=== PATIENT | female | born 1995 | race Caucasian/White ===

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

== ENCOUNTER 2018-07-25 20:21 | Emergency (ER) | payer MEDICAID, OTHER ==
--- NOTE | 2018-07-25 20:58 | EDPHY ---
HPI/HX/ROS/PE/MDM Narrative: CHIEF COMPLAINT: Chest tightness HPI: The patient is a 22 y/o female complaining of chest tightness and shortness of breath. Around 6 days ago, she took medication to induce a miscarriage. Since then she has had steady vaginal bleeding and minor pain with urination. She has also felt more anxious and has had some tingling in her extremities. Today at 11 :00, 10 hours ago, she started to having a tight sensation in her chest associated with feeling like she can't take a full breath. This pain started while doing house work and is aggravated while lying down. Since arriving in the emergency department the pain has started radiating to her back. She denies a history of similar symptoms and this feels different than a prior asthma attack. Denies cardiac or pulmonary disease, familial history of cardiac or pulmonary disease, history of blood clots. No headache, abdominal pain, bowel complaints, paresthesias, fever. REVIEW OF SYSTEMS: Aside from elements discussed in the HPI, a comprehensive 10 system review of systems is otherwise negative. PMH: Elective , exercise induced asthma SOCIAL HISTORY: Mother at bedside, lives in [facility] PHYSICAL EXAM: General: Patient is anxious, alert, in no acute distress. ENT: Eyes are normal to inspection. ENT inspection normal. Neck: Normal inspection. Full range of motion. Respiratory: No respiratory distress. Breath sounds normal bilaterally. Cardiovascular: Regular rate and rhythm. Strong peripheral pulses. Normal cap refill. Abdomen: The abdomen is nontender to palpation. There are no peritoneal signs. There are normal bowel sounds. Back: Normal to inspection. No tenderness to palpation. Skin: Normal color. No rash. Warm and dry. Extremities: Normal appearance. Full range of motion. Neuro: Oriented x3. Normal motor function. Normal sensory function. ED Course: 2110: EKG was ordered and interpreted by myself. Please see [employer] system for official reading. 2149: Patient's labs and chest x-ray are unremarkable. She is feeling better after 0.5 mg IV Ativan. 2228: Reassessed patient and discussed laboratory and imaging studies.I have prescribed her Macrobid for her UTI. Return precautions provided; patient is comfortable with this plan. MDM: This is a young female with atypical chest pain and negative workup. Patient apparently admitted to nurse that she has been using meth. I see no signs of PE , PTx, ACS, TAD or pneumonia. Patient has no minimal urinary symptoms but appears to have a UTI by UA. - Data Points Imaging Results: Imaging Impressions Chest X-Ray 07/25/18 21:02 Impression: No acute cardiopulmonary process. Imaging: I viewed and interpreted images myself Laboratory Results: Laboratory Results 07/25/18 21:00 07/25/18 21:00 07/25/18 07/25/18 07/25/18 22:00 21:00 21:00 WBC RBC Hgb Hct MCV MCH MCHC RDW Plt Count MPV Neut % (Auto) Lymph % (Auto) [place] % (Auto) Eos % (Auto) Baso % (Auto) Nucleat RBC Rel Count Absolute Neuts (auto) Absolute Lymphs (auto) Absolute Monos (auto) Absolute Eos (auto) Absolute Basos (auto) Absolute Nucleated RBC Immature Gran % Immature Gran # D-Dimer < 0.27 ug/mLFEU ug/mLFEU (0.00-0.50) Sodium 138 mEq/L mEq/L (135-145) Potassium 4.1 mEq/L mEq/L (3.3-5.0) Chloride 107 mEq/L mEq/L (97-110) Carbon Dioxide 19 mEq/l L mEq/l (22-31) Anion Gap 12 mEq/L mEq/L (6-14) BUN 12 mg/dL mg/dL (7-23) Creatinine 0.5 mg/dL L mg/dL (0.6-1.0) Estimated GFR > 60 Glucose 98 mg/dL mg/dL (70-100) Calcium 10.4 mg/dL mg/dL (8.5-10.4) Urine Color YELLOW Urine Appearance HAZY Urine pH 8.0 H (5.0-7.5) Ur Specific [place] 1.015 (1.002-1.030) Urine Protein NEGATIVE (NEGATIVE) Urine Ketones 1+ H (NEGATIVE) Urine Blood 3+ H (NEGATIVE) Urine Nitrate NEGATIVE (NEGATIVE) Urine Bilirubin NEGATIVE (NEGATIVE) Urine Urobilinogen NEGATIVE EU EU (0.2-1.0) Ur Leukocyte Esterase 1+ H (NEGATIVE) Urine RBC 15-25 /hpf H /hpf (0-3) Urine WBC 25-50 /hpf H /hpf (0-3) Ur Epithelial Cells TRACE /lpf /lpf (NONE-1+) Urine Mucus TRACE /lpf /lpf (NONE-1+) Urine Glucose NEGATIVE (NEGATIVE) 07/25/18 21:00 WBC 17.70 10^3/uL H 10^3/uL (3.80-9.50) RBC 4.21 10^6/uL 10^6/uL (4.18-5.33) Hgb 13.1 g/dL g/dL (12.6-16.3) Hct 38.9 % % (38.0-47.0) MCV 92.4 fL fL (81.5-99.8) MCH 31.1 pg pg (27.9-34.1) MCHC 33.7 g/dL g/dL (32.4-36.7) RDW 12.7 % % (11.5-15.2) Plt Count 344 10^3/uL 10^3/uL (150-400) MPV 9.9 fL fL (8.7-11.7) Neut % (Auto) 79.7 % H % (39.3-74.2) Lymph % (Auto) 10.8 % L % (15.0-45.0) [place] % (Auto) 7.7 % % (4.5-13.0) Eos % (Auto) 0.8 % % (0.6-7.6) Baso % (Auto) 0.4 % % (0.3-1.7) Nucleat RBC Rel Count 0.0 % % (0.0-0.2) Absolute Neuts (auto) 14.10 10^3/uL H 10^3/uL (1.70-6.50) Absolute Lymphs (auto) 1.92 10^3/uL 10^3/uL (1.00-3.00) Absolute Monos (auto) 1.37 10^3/uL H 10^3/uL (0.30-0.80) Absolute Eos (auto) 0.14 10^3/uL 10^3/uL (0.03-0.40) Absolute Basos (auto) 0.07 10^3/uL 10^3/uL (0.02-0.10) Absolute Nucleated RBC 0.00 10^3/uL 10^3/uL (0-0.01) Immature Gran % 0.6 % % (0.0-1.1) Immature Gran # 0.10 10^3/uL 10^3/uL (0.00-0.10) D-Dimer Sodium Potassium Chloride Carbon Dioxide Anion Gap BUN Creatinine Estimated GFR Glucose Calcium Urine Color Urine Appearance Urine pH Ur Specific [place] Urine Protein Urine Ketones Urine Blood Urine Nitrate Urine Bilirubin Urine Urobilinogen Ur Leukocyte Esterase Urine RBC Urine WBC Ur Epithelial Cells Urine Mucus Urine Glucose Medications Given: Discontinued Medications Lorazepam (Ativan Injection) 0.5 mg IVP EDNOW ONE Stop: 07/25/18 21:02 Last Admin: 07/25/18 21:15 Dose: 0.5 mg General Time Seen by Provider: 07/25/18 20:49 Initial Vital Signs: Initial Vital Signs Temperature (C) 36.5 C 07/25/18 20:31 Heart Rate 89 07/25/18 20:31 Respiratory Rate 18 07/25/18 20:31 Blood Pressure 95/67 L 07/25/18 20:31 O2 Sat (%) 99 07/25/18 20:31 O2 Delivery Mode Room Air Allergies/Adverse Reactions: No Known Allergies Allergy (Verified 07/25/18 20:31) Home Medications: Medication Instructions Recorded Cephalexin [Keflex (*)] 500 mg PO TID #30 cap 11/27/16 Sulfamethox/Tmp 800/160 mg 2 tab PO BID 10 Days tab 11/27/16 [Bactrim Ds] Nitrofurantoin Monohyd/M-Cryst 100 mg PO BID #20 cap 07/25/18 [Nitrofurantoin [place]-Macrocrystal] Departure - Departure Disposition: Home, Routine, Self-Care Clinical Impression: Chest pain, UTI (urinary tract infection), Anxiety Condition: Good Instructions: Chest Pain (ED), Urinary Tract Infection in Women (ED), Anxiety ( ED) Additional Instructions: Take Macrobid as prescribed. Follow-up with your primary doctor within 72 hours. Return to the Emergency Department for fever, worsening pain, flank pain or failure to improve within 72 hours. It is possible that the bacteria causing your infection is resistant to the antibiotic we've placed you on. We have sent a urine for culture, if this comes back with a resistant bacteria, we will call you at the number you provided to us. Referrals: Carmencita Kam MD [Medical Doctor] - As per Instructions Prescriptions: Nitrofurantoin Monohyd/M-Cryst [Nitrofurantoin [place]-Macrocrystal] 100 mg PO BID #20 cap Report Scribed for: Emmanuel Solis Report Scribed by: Zahra Duron Date of Report: 07/25/18 Time of Report: 20:58 Physician Review and Approval Statement: Portions of this note were transcribed by an ED scribe. I personally performed the history, physical exam, and medical decision making; and confirm the accuracy of the information in the transcribed note.
[2018-07-25] MEDS ORDERED: LORazepam 2 MG/ML INJ IVP ONE (21:01)
[2018-07-25 21:23] LABS: PLATELET COUNT 344 10^3/uL (150-400)
[2018-07-25 22:37] VITALS: BP 126/62
--- NOTE | 2018-07-25 22:50 | CPEKG ---
Test Reason : OPEN Blood Pressure : / mmHG Vent. Rate : 095 BPM Atrial Rate : 096 BPM P-R Int : 125 ms QRS Dur : 084 ms QT Int : 373 ms P-R-T Axes : 054 020 065 degrees QTc Int : 469 ms Sinus rhythm Confirmed by Emmanuel Solis ([id number]) on 07/25/2018 10:50:30 PM Referred By: Confirmed By:Emmanuel Solis
== END 2018-07-25 22:38 | disposition home or self-care (01) ==
DX: R07.9 Chest pain, unspecified (principal); N39.0 Urinary tract infection, site not specified; F41.9 Anxiety disorder, unspecified
CPT/HCPCS: 84484-PO; 96374; J2060

== ENCOUNTER → 2018-11-24 | Outpatient (CLI) | payer MEDICAID ==
[~2018-11-24] MED LIST: GADOBUTROL 10 ML VIAL IVP ONE
== END ==
LOC: FIMAGING 15:22
PROVIDERS: ATTEND Family Medicine
DX: M84.88 Other disorders of continuity of bone, other site (principal)
CPT/HCPCS: A9585

== ENCOUNTER → 2019-01-12 | Outpatient (CLI) | payer MEDICAID | LOC: FIMAGING 14:37 | PROVIDERS: ATTEND Registered Nurse | DX: N63.11 Unspecified lump in the right breast, upper outer quadrant (principal) ==